=== PATIENT | female | born 1965 | race Caucasian/White ===

== ENCOUNTER → 2018-10-19 | Outpatient (CLI) | payer OTHER | LOC: MC.RAD 07:10 | DX: Z12.31 Encounter for screening mammogram for malignant neoplasm of breast (principal) ==

== ENCOUNTER → 2019-06-29 | Outpatient (CLI) | payer BC | LOC: COL.RAD 06-25 08:00 | DX: M25.552 Pain in left hip (principal) | CPT/HCPCS: J3301; Q9967 ==

== ENCOUNTER → 2019-08-08 | Outpatient (CLI) | payer BC | LOC: COL.RAD 14:15 | DX: M25.552 Pain in left hip (principal) | CPT/HCPCS: J3301; Q9967 ==

== ENCOUNTER 2019-10-08 07:59 | Outpatient (RCR) | payer BC | END 2020-01-06 | disposition home or self-care (01) | LOC: WSPT | DX: Z01.812 Encounter for preprocedural laboratory examination (principal); M16.12 Unilateral primary osteoarthritis, left hip ==

== ENCOUNTER 2019-11-26 16:00 | Outpatient (RCR) | payer BC | END 2020-01-17 | disposition home or self-care (01) | LOC: WSPT | DX: M16.12 Unilateral primary osteoarthritis, left hip (principal); Z96.642 Presence of left artificial hip joint ==

== ENCOUNTER → 2021-03-02 | Outpatient (CLI) | payer BC | LOC: MC.RAD 09:52 | DX: Z12.31 Encounter for screening mammogram for malignant neoplasm of breast (principal) ==

== ENCOUNTER → 2024-02-09 | Outpatient (CLI) | payer BC | LOC: MC.RAD 06:55 | DX: Z12.31 Encounter for screening mammogram for malignant neoplasm of breast (principal) ==